=== PATIENT | male | born 1985 | race Caucasian/White ===

== ENCOUNTER → 2020-11-14 | Outpatient (CLI) | payer OTHER ==
--- NOTE | 2020-11-14 18:17 | US ---
EXAMINATION TYPE: US kidneys/renal and bladder DATE OF EXAM: 11/14/2020 COMPARISON: NONE CLINICAL HISTORY: 35-year-old male R35.0 Urinary frequency at night for 1-2 months TECHNIQUE: Multiple sonographic images of the kidneys and bladder are obtained. FINDINGS: EXAM MEASUREMENTS: Right Kidney: 10.7 x 5.0 x 4.4 cm Left Kidney: 10.3 x 5.3 x 4.6 cm Post Void Residual Volume: Complete emptying. Right Kidney: no evidence of hydronephrosis Left Kidney: no evidence of hydronephrosis Bladder: Partially distended bladder shows no gross abnormality. Bilateral Jets seen: no Normal Post Void Residual: yes IMPRESSION: No hydronephrosis. There is complete emptying of the bladder after voiding.
== END | disposition home or self-care (01) ==
LOC: RADUSWWP 15:45
PROVIDERS: ATTEND Family Medicine
DX: R35.0 Frequency of micturition (principal)
CPT/HCPCS: 76770